=== PATIENT | female | born 1990 | race Caucasian/White ===

== ENCOUNTER 2018-01-14 10:55 | Emergency (ER) | payer OTHER ==
[~2018-01-14] VITALS: Ht 167.6 cm; Wt 69.4 kg
--- OUTSIDE RECORDS SUMMARY | ~2018-01-14 | XMS | Clinical Summary ---
Demographics + + + | Address | [address] | | | [place] [address] | + + + | Home Phone | | + + + | Preferred Language | Unknown | + + + | Marital Status | Single | + + + | Buddhist Affiliation | Unknown | + + + | Race | Unknown | + + + | Ethnic Group | Other Race | + + + Author + + + | Author | [facility] | + + + | Organization | [facility] | + + + | Address | Unknown | + + + | Phone | Unavailable | + + + Support + + + + + | Name | Relationship | Address | Phone | + + + + + | NONE,NONE | ECON | [address] | | | | | [place] | | | | | [address] | | + + + + + Care Team Providers + +------+ + | Care Patient Support Specialist Name | Role | Phone | + +------+ + PP | Unavailable | + +------+ + Source Comments VICTORINO is fully live on both [facility] and [facility] InPatient[facility] Allergies Not on File Current Medications Not on file Active Problems Not on file Social History + +-------+ +--------+------+ | Tobacco Use | Types | Packs/Day | Years | Date | | | | | Used | | + +-------+ +--------+------+ | Never Assessed | | | | | + +-------+ +--------+------+ + + + | Sex Assigned at | Date Recorded | | | | + + + | Not on file | | + + + Plan of Treatment Not on file Results Not on filefrom Last 3 Months"
--- OUTSIDE RECORDS SUMMARY | ~2018-01-14 | XMS | Clinical Summary ---
Demographics + + + | Address | [address] | | | [place] [address] | + + + | Home Phone | | + + + | Preferred Language | Unknown | + + + | Marital Status | | + + + | Tenriism Affiliation | Unknown | + + + | Race | Unknown | + + + | Ethnic Group | Unknown | + + + Author + + + | Author | [facility] | | | and [place] | + + + | Organization | [facility] | | | and [place] | + + + | Address | Unknown | + + + | Phone | Unavailable | + + + Support + + +---------+ + | Name | Relationship | Address | Phone | + + +---------+ + | Vi Anderson | ECON | Unknown | | + + +---------+ + Care Team Providers + +------+ + | Care Labor Relations Manager Name | Role | Phone | + +------+ + | Helene Zheng MD | PP | | + +------+ + Allergies + + + + + + | Active Allergy | Reactions | Severity | Noted | Comments | | | | | Date | | + + + + + + | Dexamethasone | Other (See Comments) | | 11/09/19 | Skin turns red | | | | | 16 | | + + + + + + | Infliximab | Swelling | | 11/09/19 | throat swelling | | | | | 16 | | + + + + + + Current Medications + + + +---------+------+------+-------+ | Prescription | Sig. | Disp. | Refills | Star | End | Statu | | | | | | t | Date | s | | | | | | Date | | | + + + +---------+------+------+-------+ | buprenorphine | Place 4 mg under the | | | / | | Activ | | (SUBUTEX) 8 mg SUBL | tongue 3 times | | | 0/20 | | e | | | daily. | | | 17 | | | + + + +---------+------+------+-------+ | adalimumab | Inject 0.8 mLs under | 2 each | 3 | 11/2 | | Activ | | (HUMIRA) 40 mg/0.8 | the skin every 14 | | | 9/20 | | e | | mL injection | days. | | | 17 | | | | (syringe) | | | | | | | + + + +---------+------+------+-------+ Active Problems + + + | Problem | Noted Date | + + + | Unspecified disorder of skin and subcutaneous tissue | 09/25/2010 | + + + + + | Overview: Overview: | | Wart right thumb | + + + + + | Allergic rhinitis | 06/13/2010 | + + + | Other chronic pain | 09/03/2009 | + + + + + | Overview: Overview: For crohn's disease. Acetaminophen | | hydrocodone 1 tab 4-6 hrs prn #90 tabs per month. 03/04/10 | | Medical marijuana x 3 weeks, NO MORE NARCOTICS FROM [place]. Pt | | verbalized understanding and agreed. | + + + + + | Peptic ulcer | 07/19/2009 | + + + + + | Overview: Overview: | | dx 2005 EGD due to upper abd pain on 01/11/09 Distal esophagitis | | | | IMO Problem List Replacement - 2016_Regulatory_1 | + + + + + | Regional enteritis (HCC) | 07/19/2009 | + + + + + | Overview: Overview: Ileocolonic Crohn's dse s/p small bowel | | right colonic resections in 2001 and 2002. Last coloscopy 01/11/09 | | some ileal ulcerations Sees GI Dom Villagran MD [place] | | ClinicIMO Problem List Replacement - 2017_Regulatory_1 | | | |IMO Problem List Replacement - 2017_Regulatory_1 | + + Family History + + +------+ + | Medical History | Relation | Name | Comments | + + +------+ + | Breast cancer | Other | | | + + +------+ + | Depression | Other | | | + + +------+ + | Diabetes | Paternal | | | | | Grandmoth | | | | | er | | | + + +------+ + + +------+--------+ + | Relation | Name | Status | Comments | + +------+--------+ + | Brother | | Alive | | + +------+--------+ + | Father | | Alive | | + +------+--------+ + | Mother | | Alive | | + +------+--------+ + | Other | | | | + +------+--------+ + | Paternal Grandmother | | | | + +------+--------+ + | Sister | | Alive | | + +------+--------+ + | Sister | | Alive | | + +------+--------+ + Social History + + + +--------+------+ | Tobacco Use | Types | Packs/Day | Years | Date | | | | | Used | | + + + +--------+------+ | Current Every Day | Cigarettes | 0.25 | | | | Smoker | | | | | + + + +--------+------+ + +---+---+---+ | Smokeless Tobacco: | | | | | Never Used | | | | + +---+---+---+ + + +---------+ + | Alcohol Use | Drinks/We | oz/Week | Comments | | | ek | | | + + +---------+ + | No | 0 | 0.0 | | | | Standard | | | | | drinks or | | | | | | | | | | equivalen | | | | | t | | | + + +---------+ + + + + | Sex Assigned at | Date Recorded | | | | + + + | Not on file | | + + + Last Filed Vital Signs + + + + | Vital Sign | Reading | Time Taken | + + + + | Blood Pressure | 90/60 | 07/29/2017 1523 PST | + + + + | Pulse | 84 | 07/29/20171522 PST | + + + + | Temperature | - | - | + + + + | Respiratory Rate | 16 | 07/29/20171522 PST | + + + + | Oxygen Saturation | 98% | 11/15/20151515 PST | + + + + | Inhaled Oxygen | - | - | | Concentration | | | + + + + | Weight | 69.1 kg (152 lb 5.4 | 07/29/20171522 PST | | | oz) | | + + + + | Height | 170.2 cm (5' 7") | 07/29/20171522 PST | + + + + | Body Mass Index | 23.86 | 07/29/20171522 PST | + + + + Plan of Treatment + + + + + | Health Maintenance | Due Date | Last Done | Comments | + + + + + | Vaccine: | | | | | Dtap/Tdap/Td (1 - | 7 | | | | Tdap) | | | | + + + + + | Vaccine: | | | | | Pneumococcal 19-64 | 7 | | | | (PPSV23 only) Medium | | | | | Risk (1 of 1 - | | | | | PPSV23) | | | | + + + + + | CERVICAL CANCER | | | | | SCREENING (PAP EVERY | 9 | | | | 3 YEARS 21-64 ) | | | | + + + + + | Vaccine: Influenza | | | | | (Season Ended) | 8 | | | + + + + + Results Not on filefrom Last 3 Months Insurance + +--------+ +--------+ +---------+ | Payer | Benefi | Subscriber | Type | Phone | Address | | | t Plan | ID | | | | | | / | | | | | | | Group | | | | | + +--------+ +--------+ +---------+ | [employer] | MODA | xxxxxxxx | Medica | [phone] | | | MEDICAID HMO | HEALTH | | id | [phone] | | | | MDCD | | | | | | | [place]MO [place] | | | | | + +--------+ +--------+ +---------+ + +--------+ +--------+ + + | Guarantor Name | Accoun | Relation to | Date | Phone | Billing Address | | | t Type | Patient | of | | | | | | | | | | + +--------+ +--------+ + + | PRUDENCE WEBER | Person | Self [birth year] Home: | [address] | | | al/Fam | | 1990 | [phone] | [place] [address] | | | anisha | | | [phone] | | + +--------+ +--------+ + +
--- OUTSIDE RECORDS SUMMARY | ~2018-01-14 | XMS | Clinical Summary ---
Demographics + + + | Address | [address] | | | [place] [address] | + + + | Home Phone | | + + + | Preferred Language | Unknown | + + + | Marital Status | Single | + + + | Sabianist Affiliation | Unknown | + + + | Race | Unknown | + + + | Ethnic Group | Other Race | + + + Author + + + | Author | [facility] | + + + | Organization | [facility] | + + + | Address | Unknown | + + + | Phone | Unavailable | + + + Support + + + + + | Name | Relationship | Address | Phone | + + + + + | NONE,NONE | ECON | [address] | | | | | [place] | | | | | [address] | | + + + + + Care Team Providers + +------+ + | Care Director Of Religious Activities Name | Role | Phone | + +------+ + PP | Unavailable | + +------+ + Source Comments VICTORINO is fully live on both [facility] and [facility] InPatient.[facility] Allergies Not on File Current Medications Not [...]
--- OUTSIDE RECORDS SUMMARY | ~2018-01-14 | XMS | Clinical Summary ---
Demographics + + + | Address | [address] | | | [place] [address] | + + + | Home Phone | | + + + | Preferred Language | Unknown | + + + | Marital Status | | + + + | Adventism Affiliation | Unknown | + + + | Race | Unknown | + + + | Ethnic Group | Unknown | + + + Author + + + | Author | [facility] | | | and [place] | + + + | Organization | [facility] | | | and [place] | [...] Team Providers + +------+ + | Care Desktop Specialist Name | Role | Phone | [...] ileal ulcerations Sees GI Dom Villagran MD [place] | | ClinicIMO Problem List Replacement - [...] | MODA | xxxxxxxx | Medica | [phone] | | | MEDICAID HMO | HEALTH [...] | 1990 | [phone] | [place] [address] | | | anisha | | | [phone] | | + +--------+ +--------+ + +
[~2018-01-14 10:55] MED LIST: CITRATE OF MAG300 ML PO; HUMIRA20 MG/0.4 SUB-Q; OXYCODONE HCL15 MG PO
[2018-01-14] MEDS ORDERED: BUPRENORPHINE HC8 MG SL (11:07)
[2018-01-14] MEDS ORDERED: CIPRO500 MG PO (12:54)
[2018-01-14] MEDS ORDERED: ZOFRAN ODT4 MG PO (12:54)
== END 2018-01-14 13:25 | disposition home or self-care (01) ==
LOC: ED 10:55
DX: K52.9 Noninfective gastroenteritis and colitis, unspecified (principal); F17.200 Nicotine dependence, unspecified, uncomplicated; Z88.8 Allergy status to other drugs, medicaments and biological substances; Z79.899 Other long term (current) drug therapy
CPT/HCPCS: 80053; 81001; 83605; 83690; 84703; 85025; 96361; 96374; 99283; J2405; J7030

== ENCOUNTER 2025-06-14 22:00 | Inpatient (IN) | payer OTHER ==
[~2025-06-14] VITALS: Ht 167.6 cm; Wt 75.5 kg
[~2025-06-14 22:00] MED LIST changes: +BUPRENORPHINE HC8 MG SL; +CIPRO500 MG PO; +HYDROCORTISONE454 GM TOP; +METHYLPHENIDATE36 MG PO; +PREDNISONE10 MG PO; +SKYRIZI ON360 MG/2.4 SUB-Q; +ZOFRAN ODT4 MG PO
--- OUTSIDE RECORDS SUMMARY | 2025-06-14 22:07 | XMS ---
PreManage Notification: GREG JACKSON Security Beautician Apprentice Events No recent Security Events currently on file CRITERIA MET - [facility] - 2 Visits in 30 Days CARE PROVIDERS -, [facility] Dentist: Extension Service Specialist [facility] PHONE: [phone] -[place]- Dentist: Extension Service Specialist [facility] PHONE: [phone] [place] [facility]: [facility] PHONE: [phone] Gabe has no Care Guidelines for this patient. E.D. VISIT COUNT (12 MO.) 2 NEEL Landin [facility] AtulJorge L TOTAL 3 NOTE: Visits indicate total known visits. ED/UCC VISIT TRACKING (12 MO.) 06/14/2025 22:01 [facility] [place] TYPE: Emergency COMPLAINT: - VOMITING 06/04/2025 07:08 [facility] [place] TYPE: Emergency COMPLAINT: - VOMITING 12/22/2024 17:46 [facility] TYPE: Emergency COMPLAINT: - MELENA DIAGNOSES: 0. Melena 0. BOWEL ISSUES 1. Generalized abdominal pain 2. Acquired absence of other specified parts of digestive tract 2. Anxiety disorder, unspecified 2. Personal history of other diseases of the digestive system INPATIENT VISIT TRACKING (12 MO.) 06/05/2025 10:00 [facility] [place] TYPE: Medical Surgical COMPLAINT: - SBO DIAGNOSES: - Acquired absence of other specified parts of digestive tract - Acquired absence of other specified parts of digestive tract - Allergy status to other drugs, medicaments and biological substances - Allergy status to other drugs, medicaments and biological substances - Crohn's disease, unspecified, with intestinal obstruction - Crohn's disease, unspecified, without complications - Crohn's disease, unspecified, without complications - Nicotine dependence, cigarettes, uncomplicated - Nicotine dependence, cigarettes, uncomplicated - Other fci (current) drug therapy - Other fci (current) drug therapy - Other specified postprocedural states - Other specified postprocedural states - Partial intestinal obstruction, unspecified as to cause [email or web address]
[2025-06-14 22:45] LABS: MCH 28.8 PG (25.6-32.2); MCHC 33.9 g/dL (32.2-35.5); MCV 85.2 fL (79.4-94.8); RBC 5.20 M/uL (3.93-5.22)
[2025-06-14] MEDS ORDERED: HYDROmorphone HCL 1 MG/ML SYR IV ONE (22:45)
[2025-06-14] MEDS ORDERED: PROCHLORPERAZINE EDISYLATE 10 MG/2 ML VIAL IV ONE (22:45)
[2025-06-14] MEDS ORDERED: SODIUM CHLORIDE 0.9% 1,000 ML IV ONE (22:45)
[2025-06-14 22:58] LABS: BANDS, MANUAL DIFF 2; LYMPHOCYTES, MANUAL DIFF 7; MONOCYTES, MANUAL DIFF 1; NEUTROPHILS, MANUAL DIFF 90
[2025-06-14 23:02] LABS: ALT (SGPT) 24.0 U/L (14-59); AST (SGOT) 19.0 U/L (15-37); GLOMERULAR FILTRATION RATE,EST 102.0 mL/min (>60); PROTEIN, TOTAL 8.4 g/dL (6.4-8.2); UREA NITROGEN 13.0 mg/dL (7-18)
[2025-06-15] VITALS (11 sets, daily range): BP systolic 109–149; BP diastolic 81–108
[2025-06-15] MEDS ORDERED: HYDROmorphone HCL 1 MG/ML SYR IV ONE (00:15)
[2025-06-15] MEDS ORDERED: HYDROmorphone HCL 1 MG/ML SYR IV PRN ×2 (00:45→13:30)
[2025-06-15] MEDS ORDERED: MIDAZOLAM HCL 2 MG/2 ML VIAL IV ONE (00:45)
[2025-06-15] MEDS ORDERED: DEXTROSE 5% - LACTATED RINGERS 1,000 ML IV SCH (00:45)
[2025-06-15] MEDS ORDERED: LIDOCAINE HCL 4% 5 ML AMP INH ONE (01:30)
[2025-06-15] MEDS ORDERED: HYDROCORTISONE SOD SUCCINATE 100 MG/2 ML VIAL IV SCH (02:00)
--- NOTE | 2025-06-15 03:51 | NUR ---
Pt had an episode of N/V roughly 30 min after this RN treated pt's pain with Dilaudid per orders. PRN Zofran given. Cool wash cloths given for comfort. NGT output minimal despite wall suction. Per pt's XRAY post NG insertion, NG is kinked in gastric fundus and needs repositioning. This RN notified Dr. Gamboa, recommends to retract NG tube until adequate suctioning obtained and repeat XRAY for confirmation.
[2025-06-15 05:21] LABS: BASOPHILS 0.3 % (0.1-1.2); EOSINOPHILS 0 % (0.7-5.8); LYMPHOCYTES 1.7 % (19.3-51.7); MCH 28.8 PG (25.6-32.2); MCHC 33.7 g/dL (32.2-35.5); MCV 85.6 fL (79.4-94.8); MONOCYTES 1.5 % (4.7-12.5); NEUTROPHILS 95.6 % (34.0-71.1); RBC 5.34 M/uL (3.93-5.22)
[2025-06-15 05:36] LABS: ALT (SGPT) 16.0 U/L (14-59); AST (SGOT) 21.0 U/L (15-37); GLOMERULAR FILTRATION RATE,EST 96.0 mL/min (>60); PROTEIN, TOTAL 7.9 g/dL (6.4-8.2); UREA NITROGEN 16.0 mg/dL (7-18)
[2025-06-15] MEDS ORDERED: DEXTROSE 5% 1,000 ML IV PRN (06:15)
[2025-06-15] MEDS ORDERED: IBLOOD GLUCOSE TEST STRIP 1 EA TEST XX PRN (06:15)
[2025-06-15] MEDS ORDERED: DEXTROSE 50% 50 ML SYR IV PRN ×2 (06:15)
[2025-06-15] MEDS ORDERED: GLUCAGON,HUMAN RECOMBINANT 1 MG/ML VIAL SUB-Q PRN (06:15)
[2025-06-15] MEDS ORDERED: LACTATED RINGER'S 1,000 ML IV SCH (06:15)
--- NOTE | 2025-06-15 06:55 | NUR ---
REPORT RECEIVED FROM STATE PATROL OFFICER FREDERICK TERAN.
--- NOTE | 2025-06-15 07:25 | NUR ---
JEFFRY RN IS IN THE ROOM AT THIS TIME. JEFFRY REPORTED 100 ML EMESIS AND 400 ML VOID TO THE BEDSIDE COMMODE AT THIS TIME. THIS RN GOT DILAUDID FOR THE PATIENT AT THIS TIME. JEFFRY AND PATIENT STATED NO FURTHER NEEDS AT THIS TIME. CALL LIGHT AND PEROSNAL BELONGINGS ARE WITHIN REACH.
--- NOTE | 2025-06-15 07:55 | NUR ---
PATIENT IS LYING IN BED WITH HOB ELEVATED. ROUNDED ON THE PATIENT AT THIS TIME. PATIENT IS ALERT AND ORIENTED TIMES FOUR. PATIENT WITH NO COMPLAINTS OF PAIN OR NAUSEA AT THIS TIME. PATIENT IS NPO WITH THE NG TUBE IN PLACE. PATIENT ABDOMEN IS DISTENDED, TENDER, AND FIRM. BOWEL TONES ARE HYPOACTIVE IN ALL FOUR QUADRANTS. CARDIAC WITH NORMAL S1 AND S2 ON AUSCULTATION. PATIENT IS ON THE HEART MONITOR IN SINUS TACHYCARDIA. PATIENT IS ON ROOM AIR AND LUNG SOUNDS ARE CLEAR THROUGHOUT. CLOVER, RT IS IN THE ROOM TO GET EKG. PATIENT STATED NO FURTHER NEEDS AT THIS TIME. CALL LIGHT AND PERSONAL BELONGINGS ARE WITHIN REACH.
[2025-06-15] MEDS ORDERED: IBLOOD GLUCOSE TEST STRIP 1 EA TEST VI SCH (08:00)
--- NOTE | 2025-06-15 08:18 | NUR ---
MED REC COMPLETE
--- NOTE | 2025-06-15 09:01 | NUR ---
PATIENT IS LYING IN BED WITH HOB ELEVATED. PATIENT WITH EYES OPEN AND RESPIRATIONS ARE EVEN AND UNLABORED. 0800 MEDICATIONS ADMINISTERED PER THE EMAR. PATIENT RATED PAIN 7/10 IN THE ABDOMEN WHEN IS SPIKES. PATIENT IS REQUESTING SOMETHING FOR PAIN. PATIENT EDUCATED ON PAIN MEDICATIONS BEING AVAILABLE AT 0930. PATIENT EXPRESSED UNDERSTANDING. PATIENT IV SITE FLUSHED WITH 10 ML NORMAL SALINE. PATIENT STATED NO FURTHER NEEDS AT THIS TIME. CALL LIGHT AND PERSONAL BELONGINGS ARE WITHIN REACH.
--- NOTE | 2025-06-15 09:40 | NUR ---
CHANGES NOTED IN EKG LEADS [address] CONNELL NOTIFIED AND ORDERD STAT EKG AND LABS TROP. PT IN BE EYES CLOSED, DENIES CHEST PAIN , NUMBNESS AND OR ANYDISCOMFORT.
--- NOTE | 2025-06-15 09:50 | NUR ---
PT NOT AVAILABLE FOR VISIT. PROVIDED PRAYER.
--- NOTE | 2025-06-15 10:15 | NUR ---
PATIENT IS LYING IN BED WITH HOB ELEVATED. PATIENT WITH EYES OPEN AND RESPIRATIONS ARE EVEN AND UNLABORED. CUP OF ICE CHIPS PROVIDED PER MD ORDER. PATIENT IS SITTING IN THE CHAIR AT BEDSIDE. CALL LIGHT AND PEROSNAL BELONGINGS ARE WITHIN REACH.
--- NOTE | 2025-06-15 11:15 | NUR ---
FULL ASSESSMENT COMPLETE AND DOCUMENTED IN CHART. NO CHANGES FROM 0800 ASSESSMENT. HEART MONITOR LEADS REMAIN IN PLACE. PT IN SINUS TACHYCARDIA. PT RATES PAIN 4/10, AND IS REQUESTING PAIN MEDICATION. CALL LIGHT AND PERSONAL BELONGINGS ARE WITHIN REACH.
--- NOTE | 2025-06-15 11:18 | NUR ---
INTO SEE PATIENT. PERSONAL HEALTH INFORMATION REVIEWED. PATIENT LIVES WITH WITH THEIR KIDS. NO STEPS INTO THE HOME. NO DME. PATIENT DRIVES. DENIES ANY DIFFCULTY PAYING UTLITIES OR OBTAINING FOOD. PATIENT DENIES ANY CM NEEDS.
--- NOTE | 2025-06-15 12:01 | NUR ---
IN ROOM TO TAKE TEMPERATURE. PT LAYING IN BED WITH HEAD ELEVATED. PT WITH EYES CLOSED AND SNORING. CALL LIGHT AND PERSONAL BELONGINGS ARE WITHIN REACH.
--- NOTE | 2025-06-15 13:11 | NUR ---
UR CLINICAL REVIEW: MCG, MEETS INPT FOR INFLAMMATORY BOWEL DISEASE IV DILAUDID, CT SHOWS INFLAMMATION AND NARROWING OF ILEUM, HR >100 CONSISITENTLY, ABDOMINAL PAIN, NAUSEA/VOMITING, IV FLUIDS, NG TUBE IV ANTIBIOTICS AND STEROIDS [facility] INPT 06/15/2025 @ 0101 ORDER MATCHES REG AUTH PENDING, WILL SEND CLINICALS FOR REVIEW DC TO HOME WHEN MEDICALLY READY DC 06/16/2025
--- NOTE | 2025-06-15 13:28 | NUR ---
NOTIFIED OF IV DILAUDID DOSE BEING AN ED BRIDGE ORDER AND FALLING OFF THE ORDERS. MD STATED TO CONTINUE WITH IV DILAUDID 0.5-1 MG EVERY 2 HOURS NEEDED. NO FURTHER ORDERS AT THIS TIME. CALL ENDED.
[2025-06-15] MEDS ORDERED: PIPERACILLIN/TAZOBACTAM 4.5 GM in DEXTROSE 5% 100 ML IV SCH (14:00)
--- NOTE | 2025-06-15 14:00 | NUR ---
IV LR BOLUS STARTED AT THIS TIME. IV SITE REMAINS CLEAN, DRY, AND INTACT. PATIENT CLEANED UP FROM HAVING BM. SOO CARE AND ALMONTE CARE COMPLETE AT THIS TIME. PATIENT TOLERATED WELL. PATIENT REFUSED PHYSICAL THERAPY. PATIENT STATED NO FURTHER NEEDS AT THIS TIME. CALL LIGHT AND PERSONAL BELONGINGS ARE WITHIN REACH.
--- NOTE | 2025-06-15 14:07 | NUR ---
METHYLPREDNISOLONE IV DOSE VERIFIED WITH AT THIS TIME. TELEPHONE ORDER FOR IV BENADRYL AND IV ZOFRAN RECEIVED OVER THE PHONE AT THIS TIME. ORDERS PUT IN BY THIS RN. WITH NO FURTHER ORDERS AT THIS TIME. CALL ENDED.
--- NOTE | 2025-06-15 14:09 | NUR ---
PT SITTING IN BED WITH HEAD ELEVATED. EYES CLOSED, RR EVEN AND UNLABORED. AND FAMILY IN ROOM. CALL LIGHT AND PERSONAL BELONGINGS ARE WITHIN REACH.
[2025-06-15 14:27] LABS: BLOOD/HGB, URINE SMALL (Negative); KETONE, URINE TRACE (Negative); LEUK ESTERASE, URINE NEGATIVE (negative); NITRITE, URINE NEGATIVE (negative)
[2025-06-15 14:34] LABS: BACTERIA, URINE NONE SEEN /hpf (negative); CASTS, URINE NONE SEEN \\lpf; CRYSTALS, URINE NONE SEEN (0-1+); EPITHELIAL CELLS, URINE SQUAMOUS 3+ /lpf (0-1+); REFLEX CULTURE, URINE No (No)
--- NOTE | 2025-06-15 15:40 | NUR ---
PT LAYING IN BED WITH HEAD ELEVATED AND EYES CLOSED. PT IS DROWSY BUT AROUSABLE TO VOICE. FULL ASSESSMENT COMPLETE AND DOCUMENTED IN CHART. NO CHANGES FROM PRIOR ASSESSMENT. PT REPORTS PAIN 5/10 BUT IS NOT REQUESTING PAIN MEDS AT THIS TIME. PT STATED NO FURTHER NEEDS AT THIS TIME. CALL LIGHT AND PERSONAL BELONGINGS ARE WITHIN REACH.
--- NOTE | 2025-06-15 16:09 | NUR ---
PT LAYING IN BED WITH EYES CLOSED. RR ARE EVEN AND UNLABORED. CALL LIGHT AND PERSONAL BELONGINGS ARE WITHIN REACH.
--- NOTE | 2025-06-15 17:05 | NUR ---
NOTIFIED OF PATIENT REQUESTING TYLENOL FOR A HEADACHE. GAVE TELEPHONE ORDER FOR PO TYLENOL. WITH NO FURTHER ORDERS AT THIS TIME. CALL ENDED.
[2025-06-15] MEDS ORDERED: ACETAMINOPHEN 325 MG TAB PO PRN (17:15)
--- NOTE | 2025-06-15 17:42 | NUR ---
PATIENT IS NOW SITTING IN THE CHAIR. NG TUBE CLAMPED AFTER RECEIVING DOSE OF TYLENOL, SEE EMAR. PATIENT HAD 100 ML EMESIS AND SAW HALF A PILL IN THE BAG. PATIENT ASSISTED TO USING THE BATHROOM AND BRUSHING TEETH. BED LINENS CHANGED AT THIS TIME. PATIENT RECONNECTED TO THE MONITOR. PATIENT STATED NO FURTHER NEEDS AT THIS TIME. CALL LIGHT AND PEROSNAL BELONGINGS ARE WITHIN REACH.
--- NOTE | 2025-06-15 18:10 | NUR ---
PATIENT IS SITTING UPRIGHT IN THE CHAIR WITH BILATERAL LOWER EXTREMITIES ELEVATED. PATIENT WITH EYES OPEN AND RESPIRATIONS ARE EVEN AND UNLABORED. VITAL SIGNS TAKEN AND DOCUMENTED IN THE CHART. NG TUBE RECONNECTED TO INTERMITTENT WALL SUCTION. PATIENT STATED NO FURTHER NEEDS AT THIS TIME. CALL LIGHT AND PERSONAL BELONGINGS ARE WITHIN REACH.
--- NOTE | 2025-06-15 20:20 | NUR ---
PATIENT REPORTING INCREASED NAUSEA AND ABD PAIN. HAS NOTED NG TUBE IS NOT DRAINING MUCH IT HAD BEEN. ATTEMPTS MADE TO FLUSH NG TUBE AND ASPIRATE STOMACH CONTENT; WHICH IT DOES SMALL AMOUNTS. ON UNIT AND PROVIDED VERBAL ORDER FOR ADDITIONAL NAUSEA MEDS.
[2025-06-15] MEDS ORDERED: PROCHLORPERAZINE EDISYLATE 10 MG/2 ML VIAL IV PRN (20:30)
--- NOTE | 2025-06-15 20:45 | NUR ---
PATIENT HAD EMESIS 200 MLS DARK OUTPUT AND CONTINUES TO BE NAUSEOUS. DISCUSSED WITH ; ORDER FOR REPEAT CHEST XRAY AND ADVANCEMENT IF NEEDED.
--- NOTE | 2025-06-15 21:00 | NUR ---
AFTER VOMITING PATIENT HAD AN ADDITIONAL 400 MLS OUT IN HER NG TUBE. PATIENT PROVIDED PRN PAIN MEDS FOR 8/10 ABD PAIN.
--- NOTE | 2025-06-15 21:58 | NUR ---
NG TUBE ADVANCED PER RADIOLOGY REPORT RECOMMENDATION. PATIENT TOLERATED WELL. PATIENT REPORTS "NOT FEELING GOOD" BUT REPORTS ABD PAIN HAS IMPROVED AND NAUSEA IS LESS. NG TUBE TO LIWS AND PUTTING OUT BROWN STOMACH CONTENT. PATIENT VS STABLE; HR IS ELEVATED 100-130'S AT REST. IV ABX STARTED PER ORDER; SITE WNL. PATIENT DENIED OTHER NEEDS. CALL LIGHT IN REACH.
--- NOTE | 2025-06-15 23:15 | NUR ---
PATIENT PROVIDED PRN PAIN AND NAUSEA MEDS FOR ABD PAIN 5/10. PRIOR TO RN ENTERING ROOM PATIENT WAS RESTING WITH EYES CLOSED. HR ELEVATED TO 120'S. PATIENT DENIED ANY OTHER NEEDS OR CONCERNS. NG TUBE CONNECTED TO LIWS AND APPEARS TO BE FUNCTIONING WELL. CALL LIGHT IN REACH.
[2025-06-16] VITALS: BP 126/93
[2025-06-16 02:00] VITALS: BP 121/84
--- NOTE | 2025-06-16 03:15 | NUR ---
PATIENT UP TO THE BATHROOM. PATIENT VOIDED AND HAD LARGE LOOSE BM. PATIENT RETURNED TO BED. PRN PAIN MEDS PROVIDED. PATIENT REPORTS HER THROAT IS SORE AND DRY. ICE CHIPS PROVIDED FOR COMFORT. NG TUBE CONNECTED TO LIWS; APPEARS WNL. VS STABLE. PATIENT DENIES NAUSEA. IV FLUIDS CONTINUED PER ORDER; SITE WNL.
--- NOTE | 2025-06-16 05:34 | NUR ---
PATIENT UP TO THE BATHROOM. REPORTS HAVING A MEDIUM SEMI FORMED STOOL. PATIENT REPORTING PAIN 5/10 AND REQUESTING PRN ZOFRAN. PRN MEDS PROVIDED PER ORDER. LAB IN FOR MORNING DRAW.
[2025-06-16 05:37] LABS: BASOPHILS 0.1 % (0.1-1.2); EOSINOPHILS 0 % (0.7-5.8); LYMPHOCYTES 10.8 % (19.3-51.7); MCH 28.4 PG (25.6-32.2); MCHC 32.2 g/dL (32.2-35.5); MCV 88.2 fL (79.4-94.8); MONOCYTES 10.3 % (4.7-12.5); NEUTROPHILS 78.6 % (34.0-71.1); RBC 4.50 M/uL (3.93-5.22)
[2025-06-16 05:39] VITALS: BP 124/81
[2025-06-16 05:47] LABS: GLOMERULAR FILTRATION RATE,EST 102.0 mL/min (>60); UREA NITROGEN 20.0 mg/dL (7-18)
--- NOTE | 2025-06-16 06:53 | NUR ---
UPDATE PROVIDED TO ; REVIEWED LABS, VS AND OUTPUT. PLAN FOR 1L IV BOLUS AND REPEAT LACTIC. SEE ORDERS.
[2025-06-16] MEDS ORDERED: LACTATED RINGER'S 1,000 ML IV SCH (07:00)
[2025-06-16 08:00] VITALS: BP 112/71
--- NOTE | 2025-06-16 08:20 | NUR ---
REPORT RECEIVED FROM JES MACK. IN TO CHECK ON PT, SHE IS AWAKE IN BED, DOES REQUEST A CEPACOL LOZENGE AND ICE WATER.
[2025-06-16] MEDS ORDERED: MENTHOL/CETYLPYRD CL 1 LOZ LOZENGE MM PRN (08:30)
--- NOTE | 2025-06-16 08:45 | NUR ---
PT IN TO BATHROOM TO VOID AND HAVE SMALL BOWEL MOVEMENT.
--- NOTE | 2025-06-16 09:09 | NUR ---
PT NOW UP AMBULATING IN THE HALLS, STEADY ON FEET, TOLERATING IT WELL.
--- NOTE | 2025-06-16 09:16 | NUR ---
AMBULATIING IN HALLWAY THIS MORNING. NG REMAINS IN PLACE. NO CM NEEDS AT THIS TIME. PLANS TO RETURN HOME WHEN MEDICALLY READY. POTENTIALLY THURSDAY OR BEGINNING OF NEXT WEEK.
--- NOTE | 2025-06-16 09:30 | NUR ---
PT REQUESTING PAIN MEDICATION FOR ABDOMINAL PAIN, 1MG IV DILAUDID GIVEN.
--- NOTE | 2025-06-16 09:40 | NUR ---
PT ON PHONE WITH HER GI DR IN [place], SHE STAES THEY WANT THE MD PHONE NUMBER FOR A DOCTOR TO DOCTOR CALL, DR Reyes UPDATED AND NUMBER GIVEN TO PT TO GIVE HER DRS OFFICE.
--- NOTE | 2025-06-16 10:18 | NUR ---
PT NOT AVAILABLE FOR VISIT. PROVIDED PRAYER.
[2025-06-16 10:27] LABS: LACTIC ACID, BLOOD 1.5 mmol/L (0.4-2.0)
[2025-06-16] MEDS ORDERED: ACETAMINOPHEN 160 MG/5 ML CUP PO PRN (10:30)
--- NOTE | 2025-06-16 10:40 | NUR ---
PT STATES DILAUDID DID NOT HELP HER WITH HER THROAT PAIN AND GENERAL DISCOMFORT IN HER HEAD AND NECK AND REQUESTS TYLENOL. PRN TYLENOL SUSPENSION GIVEN AND NGT CLAMPED FOR 30 MINUTES. AFTER ABOUT 20 MINUTES PT REPORTED THAT SHE FEELS THE TYLENOL WAS WORKING AND HER THROAT AND HEAD ARE FEELING MUCH BETTER. PT OUT IN HALLS TO AMBULATE.
--- NOTE | 2025-06-16 11:30 | NUR ---
PT REQUESTS MORE DILAUDID, STATES SHE IS STARTING TO GET PAINFUL AGAIN. 1MG IV DILAUDID GIVEN WITH 4MG IV ZOFRAN.
--- NOTE | 2025-06-16 11:45 | EKG ---
[facility] [address] [facility] [address] [facility] [place], [place] [address] Signed Sinus tachycardia Otherwise normal ECG When compared with ECG of 15-JUN-2025 07:49, (Unconfirmed) No significant change was found Confirmed by LUCIO CONNELL MD ([id number]) on 06/16/2025 11:45:24 AM Electronically Signed By: LUCIO CONNELL 06/16/25 1145 PATIENT NAME: GREG JACKSON Electrocardiogram DATE OF : 86 PHYSICIAN: LUCIO CONNELL REPORT #: [id number] REPORT IS CONFIDENTIAL AND NOT TO BE RELEASED WITHOUT AUTHORIZATION
--- NOTE | 2025-06-16 11:46 | EKG ---
[facility] [address] [facility] [place], [place] [address] Signed Sinus tachycardia Otherwise normal ECG No previous ECGs available Confirmed by LUCIO CONNELL MD ([id number]) on 06/16/2025 11:45:48 AM Electronically Signed By: LUCIO CONNELL 06/16/25 1146 PATIENT NAME: GREG JACKSON Electrocardiogram DATE OF : [birth year] PHYSICIAN: LUCIO CONNELL REPORT #: [id number] REPORT IS CONFIDENTIAL AND NOT TO BE RELEASED WITHOUT AUTHORIZATION
--- NOTE | 2025-06-16 13:00 | NUR ---
SURGEON IN TO TALK WITH PT, STATES THAT THE SURGEON IN [place] HAS ACCEPTED PT AND REQUESTS HER TO BE TRANSFERRED, DR CONNELL UPDATED WHO AGREES TO TRANSFER. [facility] CALLED, PT PLACED ON WAITLIST, DR Reyes AND DR CONNELL UPDATED AND PT AWARE.
[2025-06-16] MEDS ORDERED: MAALOX/DIPHENHYDRAMINE/LIDOCAINE 1:1:1 BY VOLUME SUSP PO PRN (13:30)
--- NOTE | 2025-06-16 13:52 | NUR ---
PATIENT CALLED [facility] FOR PAIN COVERAGE. SHE REPORTS PAIN 7/10 ABD/THROAT, SHE SAID MAINLY THROAT. PATIENT ADMINISTERED 1MG IV DILAUDID PRN FOR PAIN. SHE REPORTS SHE FEELS LIKE SHE HAS A FEVER, ORAL TEMP 99.0 AT THIS TIME. PATIENT IS NOTED TO BE FLUSHED IN THE FACE. SHE IS SITTING UP IN BED ASSISTING HER DAUGHTER WITH HER HOME MEDICATION ADMINISTRATION. PATIENT IS VERBALIZING CONCERNS ABOUT HER BILLS AND MONEY, THAT SHE HASNT BEEN ABLE TO WORK FOR OVER A MONTH. SHE ALSO VERBALIZED THAT IF SHE DOES NEED SURGERY SHE WOULD LIKE TO GO TO HER GI DOCTOR IN [place].
[2025-06-16 14:50] VITALS: BP 146/83
[2025-06-16] MEDS ORDERED: LORazepam 2 MG/ML VIAL IV PRN (15:15)
--- NOTE | 2025-06-16 15:29 | NUR ---
PT IS MORE FLUSH THIS AFTERNOON, DISCUSSED POSSIBILITY OF STEROID REACTION WITH DR CONNELL AT BEDSIDE, DOSE OF BENADRYL WAS GIVEN PRIOR TO GIVING THE SOLUMEDROL. AFTER STEROID WAS GIVEN PT BECAME EVEN MORE FLUSHED AND STATED SHE DID NOT FEEL WELL. DR CONNELL CALLED, ORDER GIVEN FOR ATIVAN AND TO DECREASE STEROID DOSE. 1MG IV ATIVAN GIVEN.
--- NOTE | 2025-06-16 16:00 | NUR ---
PT CONT TO REST AFTER ATIVAN GIVEN.
--- NOTE | 2025-06-16 17:11 | NUR ---
PT RESTING WITH EYES CLOSED, RESP EVEN AND UNLABORED.
--- NOTE | 2025-06-16 17:14 | NUR ---
PT RESTING IN BED WITH EYES CLOSED, RESP EVEN AND UNLABORED, HR 80'S, SINUS RHYTHM.
--- NOTE | 2025-06-16 17:58 | NUR ---
PT CALLS TO ASK FOR MORE ATIVAN AND STATES HER THROAT HURTS, 1MG IV ATIVAN GIVEN WITH 1MG IV DILAUDID.
--- NOTE | 2025-06-16 18:20 | NUR ---
PT RESTING WITH EYES CLOSED, RESP EVEN AND UNLABORED, HR 80'S, NGT DRAINING DARK BROWN FLUID.
--- NOTE | 2025-06-16 19:17 | NUR ---
PT RESTING WITH EYES CLOSED, RESP EVEN AND UNLABORED.
--- NOTE | 2025-06-16 19:25 | NUR ---
HANDOFF REPORT RECEIVED FROM FREDERICK XAVIER. ALL QUESTIONS ANSWERED. PATIENT RESTING IN BED. NO EVIDENCE OF ACUTE DISTRESS NOTED.
--- NOTE | 2025-06-16 19:50 | NUR ---
THIS RN AND FREDERICK ANDRE IN ROOM. PATIENT DROWSY BUT AROUSABLE TO VERBAL STIMULI. PATIENT UPDATED ON POC. NO NEEDS IDENTIFIED AT THIS TIME. PATIENT QUICKLY DRIFTS BACK TO SLEEP. RR EVEN AND UNLABORED. NO EVIDENCE OF ACUTE DISTRESS NOTED. CALL LIGHT IN REACH
--- NOTE | 2025-06-16 20:39 | NUR ---
PATIENT RESTING IN BED W/ EYES CLOSED. RR 10. NO EVIDENCE OF ACUTE DISTRESS NOTED. CALL LIGHT IN REACH
--- NOTE | 2025-06-16 21:00 | NUR ---
PATIENT UP TO BATHROOM. SBA. PATIENT GAIT STEADY. PATIENT VOIDS WELL W/O DIFFICULTY. PATIENT PERFORMS ORAL AND SKIN CARE INDEPENDENTLY. PATIENT PROVIDED WARM WASH RAG FOR FACE. PATIENT BACK TO BED. NG TUBE ON PLACED BACK ON LIWS. THIS RN, REMAINS IN ROOM.
[2025-06-16 21:28] VITALS: BP 149/95
--- NOTE | 2025-06-16 21:30 | NUR ---
PATIENT ASSESSMENT COMPLETE. PATIENT DROWSY BUT AROUSABLE TO VERBAL STIMULI. PATIENT ORIENTED. HR 80'S-90'S, NSR. RR 18. BOWEL TONES HYPOACTIVE. PATIENT DENIES NAUSEA AT THIS TIME. PATIENT DENIES TENDERNESS UPON PALPATION. PATIENT C/O 7/10 PAIN W/ THROAT IRRITATION AND DISCOMFORT FROM NG TUBE. NG TUBE INTACT AND ON LIWS. NG TUBE FLUSHED. IV SITE INTACT AND WNL. PATIENT C/O FEELING WEAK FROM "NOT FEELING WELL". PATIENT PROVIDED ICE WATER FOR COMFORT AND ICE PACK. THIS RN AND FREDERICK ANDRE REMAIN IN ROOM
--- NOTE | 2025-06-16 22:00 | NUR ---
MEDICATIONS ADMINISTERED PER EMAR. NG TUBE INTACT AND ON LIWS. VITAL SIGNS STABLE. IVF INFUSING PER EMAR. PATIENT AT BEDSIDE. NO FURTHER NEEDS IDENTIFIED. CALL LIGHT IN REACH.
--- NOTE | 2025-06-16 23:10 | NUR ---
IV ABX INFUSING PER EMAR. PATIENT C/O THROAT IRRITATION FROM THE NG TUBE IN PLACE. PRN LOZENGE PROVIDED PER EMAR. VITAL SIGNS STABLE. PATIENT DENIES FURTHER NEEDS. CALL LIGHT IN REACH
[2025-06-17] VITALS (7 sets, daily range): BP systolic 124–156; BP diastolic 81–97
--- NOTE | 2025-06-17 00:05 | NUR ---
THIS RN IN ROOM. PATIENT C/O FEELING ANXIOUS AND 5/10 ABDOMINAL PAIN. PRN MEDICATIONS ADMINISTERED PER EMAR. VITAL SIGNS STABLE. NO EVIDENCE OF ACUTE DISTRESS NOTED. PATIENT PROVIDED ICE WATER. PATIENT DENIES NEEDS AT THIS TIME. PATIENT REPOSITIONED IN BED. CALL LIGHT IN REACH.
--- NOTE | 2025-06-17 01:47 | NUR ---
THIS RN IN PATIENT ROOM. PATIENT RESTING IN BED W/ EYES CLOSED. RR EVEN AND UNLABORED. SPO2 93% ON RA. NO EVIDENCE OF ACUTE DISTRESS NOTED. IVF INFUSING PER EMAR. CALL LIGHT IN REACH
--- NOTE | 2025-06-17 02:07 | NUR ---
PATIENT RESTING IN BED. RR 12. NO EVIDENCE OF ACUTE DISTRESS NOTED. CALL LIGHT IN REACH
--- NOTE | 2025-06-17 03:07 | NUR ---
patient resting in bed. SPO2 92% on RA. no evidence of acute distress noted. call light in reach
--- NOTE | 2025-06-17 04:00 | NUR ---
PATIENT ASSESSMENT COMPLETE. UPON ENTERING ROOM, PATIENT IS DROWSY BUT EASILY AROUSABLE TO VERBAL STIMULI. PATIENT UP TO BR, SBA. PATIENT BACK TO BED. NG TUBE INTACT AND ON LIWS. PATIENT ALERT AND ORIENTED. PATIENT C/O 6/10 ABDOMINAL PAIN. PRN PAIN MEDICATION ADMINISTERED PER EMAR. PATIENT C/O NAUSEA. PRN ZOFRAN ADMINISTERED PER EMAR. BOWEL TONES HYPOACTIVE. PATIENT DENIES SOB. VITAL SIGNS STABLE. PATIENT PROVIDED ICE PACK. PATIENT DENIES FURTHER NEEDS. PATIENT UPDATED ON POC. CALL LIGHT IN REACH.
--- NOTE | 2025-06-17 04:33 | NUR ---
THIS RN IN PATIENT ROOM. RR EVEN AND UNLABORED. PATIENT RESTING IN BED W/ EYES CLOSED. NO EVIDENCE OF ACUTE DISTRESS NOTED. VITAL SIGNS STABLE. CALL LIGHT IN REACH
--- NOTE | 2025-06-17 05:00 | NUR ---
LAB IN ROOM.
[2025-06-17 05:12] LABS: BASOPHILS 0 % (0.1-1.2); EOSINOPHILS 0 % (0.7-5.8); LYMPHOCYTES 13.8 % (19.3-51.7); MCH 28.6 PG (25.6-32.2); MCHC 32.4 g/dL (32.2-35.5); MCV 88.3 fL (79.4-94.8); MONOCYTES 6.4 % (4.7-12.5); NEUTROPHILS 79.6 % (34.0-71.1); RBC 3.77 M/uL (3.93-5.22)
--- NOTE | 2025-06-17 05:14 | NUR ---
PHONE CALL PLACED TO [facility]. UPDATED RECEIVED. PATIENT REMAINS ON WAITLIST.
[2025-06-17 05:28] LABS: ALT (SGPT) 12.0 U/L (14-59); AST (SGOT) 14.0 U/L (15-37); GLOMERULAR FILTRATION RATE,EST 112.0 mL/min (>60); PROTEIN, TOTAL 6.2 g/dL (6.4-8.2); UREA NITROGEN 12.0 mg/dL (7-18)
--- NOTE | 2025-06-17 06:25 | NUR ---
PATIENT CALL LIGHT ANSWERING. PATIENT ASSISTED UP TO BR, SBA. PATIENT BACK TO BED. NG TUBE FLUSHED. NG TUBE INTACT AND ON LIWS. VITAL SIGNS STABLE. IV SITE INTACT, IVF INFUSING PER EMAR. IV ABX INFUSING PER EMAR. PATIENT UPDATED ON POC. NO FURTHER NEEDS IDENTIFIED. CALL LIGHT IN REACH
[2025-06-17] MEDS ORDERED: PANTOPRAZOLE SODIUM 40 MG/10 ML VIAL IV SCH (09:00)
--- NOTE | 2025-06-17 09:09 | NUR ---
PT CALLS FOR MEDICATION, "IS THERE ANYTHING I CAN HAVE?"- 1MG IV DILAUDID GIVEN.
--- NOTE | 2025-06-17 10:47 | NUR ---
PT UP AMBULATING IN HALLS
--- NOTE | 2025-06-17 11:06 | NUR ---
PT NOW BACK TO BED, ATIVAN AND DILAUDID GIVEN PER REQUEST. CALL LIGHT IN REACH.
--- NOTE | 2025-06-17 12:21 | NUR ---
PT CONT TO REST WITH EYES CLOSED, RESP EVEN AND UNLABORED, SPO2 92-93% ON ROOM AIR WHEN SLEEPING.
--- NOTE | 2025-06-17 13:03 | NUR ---
PATIENT WITH HER DAUGHTER AND THIS RN AMBULATED FULL LAP FROM CCU DOWN [place] ON MED/SURG AROUND WEST MED/SURG NURSES STATION AND BACK TO HER ROOM 126. PATIENT TOLERATED ACTIVITY FAIR, STEADY GAIT. ON ARRIVAL TO CCU SHE BEGAN TO CRY, REPORTING PAIN AT HER ABD AND NGT. PRIMARY RN MORENITA CCU NOTIFIED ON ARRIVAL, AND IS NOW ADMINISTERING PAIN MEDICATION.
--- NOTE | 2025-06-17 13:45 | NUR ---
PT GOT UP AND WENT TO THE BATHROOM, REPORTS SMALL AMOUNT OF FLATUS, NO BOWEL MOVEMENT. SHE THEN AMBULATED IN HALLS APPROX 15 MIN, AND THEN GOT BACK IN BED. ONCE BACK IN BED SHE BECAME TEARFUL, UPSET AT SITUATION OF WAITING FOR A BED FOR TRANSFER AND DISCOMORT OF NGT AND ASKS IF SHE CAN HAVE ANY MEDICATION. 1MG IV DILAUDID WAS GIVEN, WELL 50 MG IV BENADRYL TO PREMEDICATE FOR SCHEDULED SOLUMEDROL. HER FAMILY IS IN TO VISIT AND SHE DOES BREAK DOWN MORE WHEN HER MOTHER ARRIVES AND REQUESTS ATIVAN, WILL GIVE PER EMAR. [facility] WAS CALLED FOR AN UPDATE AND THEY STATE SHE IS STILL NUMBER THREE ON THE WAITLIST, PT UPDATED. SHE ALSO ASKS WHY SHE CANT JUST HAVE THE NGT OUT AT THIS POINT SINCE SHE IS HAVING TO WAIT DAYS FOR TRANSFER. THIS RN EXPLAINED LARGE AMOUNT OF NG OUTPUT IS A CONCERN AND SHE DOES VERBALIZE UNDERSTANDING. SHE IS THEN GIVEN TYLENOL SUSPENSION FOR NGT RELATED PAIN AND NGT CLAMPED FOR APPROX 30 MINUTES.
--- NOTE | 2025-06-17 17:29 | NUR ---
PT HAS JUST GOTTEN BACK FROM ANOTHER WALK, AMBULATED ABOUT 10 MINUTES THEN INTO BATHROOM WHERE SHE VOIDED, HAD SMALL STOOL AND DID REPORT SMALL AMOUNT OF FLATUS. BACK TO BED AND SHE REQUESTED PAIN MEDICATION, IN TO GIVE 1MG IV DILAUDID.
--- NOTE | 2025-06-17 19:45 | NUR ---
SHIFT REPORT RECEIVED. AND PATIENT PROVIDED UPDATE FROM TRANSFER CENTER IN PATIENT ROOM. PATIENT REMAINS ON WAITLIST. PATIENT SPOUCE AT BEDSIDE. PATIENT REPORTING ABD AND THRAOT PAIN. PRN MEDS PROVIDED PER ORDER. PATIENT UP TO THE BATHROOM TO VOID. CORD MANAGEMENT REQUIRED ONLY. PATIENT STEADY ON HER FEET. NG TUBE REMAINS IN PLACE. PATIENT HAS HYPOACTIVE BOWEL SOUNDS. OUTPUT IN NG IS DARK BROWN/RED. ABD IS SOFT. IV FLUIDS INFUSING PER ORDER; SITE WNL. PATIENT PROVIDED FRESH ICE CHIPS WHICH SHE REPORTS HAVE BEEN HELPING BUT SHE IS NOT EATING AN ABUNDANCE OF. DID DISCUSS NEED FOR DEEP BREATHING AND COUGHING; PATIENT IS EXPERIENCING EXTRA SECREATIONS AND SOME CLEAR FROTHY PHLEM.
--- NOTE | 2025-06-17 21:58 | NUR ---
PATIENT PROVIDED SCHEDULED MEDS PER ORDER. ALSO PRN BENADRYL AND ATIVAN. PATIENT IS RESTING IN BED. NG TUBE IN PLACE WITH LIWS. VS STABLE. PATIENT TOLERATING ROOM AIR. HASBAND AT BEDSIDE.
--- NOTE | 2025-06-17 22:44 | NUR ---
PATIENT PROVIDED PRN PAIN MEDS AND A THROAT LOZENGE
--- NOTE | 2025-06-18 | NUR ---
PATIENT APPEARS RESTFUL IN BED. EYES CLOSED. TOLERATING ROOM AIR. NG TUBE IN PLACE AND FUNCTIONAL. ALLOWED PATIENT TO REST.
--- NOTE | 2025-06-18 02:00 | NUR ---
IV ABX FINISHED. PATIENT DID NOT OPEN EYES WHILE RN IN ROOM. APPEARS RESTFUL. HR AND Sp02 WNL. ALLOWED PATIENT TO REST. CALL LIGHT IN REACH.
--- NOTE | 2025-06-18 03:51 | NUR ---
PATIENT UP TO THE BATHROOM TO VOID. REPORTS SHE WAS SLEEPING WELL AND IS NOW PAINFUL AND SORE ALL OVER. PRN MEDS PROVIDED PER ORDER. PATIENT IS AAOX4. TOLERATING ROOM AIR. VS STABLE. NG TUBE IN PLACE WITH LIWS AND BROWN OUTPUT. IV FLUIDS CONTINUED; SITE WNL. PATIENT REMAINS ANXIOUS ABOUT THE NG TUBE AND HER TRANSFER PENDING. ENCOURAGED PATIENT TO REST. CALL LIGHT IN REACH.
[2025-06-18 03:53] VITALS: BP 143/85
--- NOTE | 2025-06-18 05:30 | NUR ---
LAB IN FOR MORNING DRAW. SCHEDULED MEDS PROVIDED. PATIENT REQUEST PRN BENADRYL WITH SCHEDULED SOLU-MEDROL DUE TO SENSITIVITY. PATIENT UP TO THE BATHROOM WITH SBA. PATIENT RETURNED TO BED. VS STABLE. IV FLUIDS AND ABX PER ORDER. CALL LIGHT IN REACH.
[2025-06-18 05:50] LABS: BASOPHILS 0 % (0.1-1.2); EOSINOPHILS 0 % (0.7-5.8); LYMPHOCYTES 20.0 % (19.3-51.7); MCH 28.7 PG (25.6-32.2); MCHC 32.2 g/dL (32.2-35.5); MCV 89.0 fL (79.4-94.8); MONOCYTES 5.3 % (4.7-12.5); NEUTROPHILS 74.5 % (34.0-71.1); RBC 3.63 M/uL (3.93-5.22)
[2025-06-18 06:00] LABS: GLOMERULAR FILTRATION RATE,EST 115.0 mL/min (>60); UREA NITROGEN 11.0 mg/dL (7-18)
[2025-06-18 06:06] VITALS: BP 153/95
--- NOTE | 2025-06-18 07:30 | NUR ---
REPORT RECEIVED FROM JES MACK. PT IS RESTING IN BED WITH EYES CLOSED, RESP EVEN AND UNLABORED, ON CONT SENIOR CARE MANAGER WITH HR 40-50'S.
[2025-06-18 08:13] VITALS: BP 158/81
--- NOTE | 2025-06-18 08:15 | NUR ---
PT CALLS TO STATE SHE IS MISERABLE AND ASK IF SHE CAN HAVE ANY MEDICATION. UP TO BATHROOM FIRST, WHERE SHE VOIDED AND HAD SMALL STOOL BUT REPORTS NO FLATUS. 1MG IV DILAUDID GIVEN, ASSESSMENT DONE, NGT DRAINING LIGHT BROWN FLUID. IN ROOM TO SEE PT.
--- NOTE | 2025-06-18 09:32 | NUR ---
DR JOYCE IN TO SEE PT
--- NOTE | 2025-06-18 10:08 | NUR ---
PT GIVEN 2MG IV ATIVAN PER REQUEST. PT NOW RESTING WITH EYES CLOSED.
[2025-06-18 11:34] VITALS: BP 133/92
--- NOTE | 2025-06-18 12:08 | NUR ---
PT CALLS TO ASK FOR PAIN MEDICATION, 1MG IV DILAUDID GIVEN WITH MORE LOZENGES, SHE DOES SAY THE LOZENGES HELP HER THROAT QUITE A BIT.
[2025-06-18 14:30] VITALS: BP 124/82
--- NOTE | 2025-06-18 15:15 | NUR ---
PT LEFT WITH PFD TO TRANSFER TO [facility].
== END 2025-06-18 15:00 | disposition short-term general hospital (02) | DRG 385 ==
LOC: ED 22:00 → CCU 06-15 01:01
PROVIDERS: Family Medicine; ADMIT Surgery; ATTEND Internal Medicine
PROC: 0D9670Z Drainage of Stomach with Drainage Device, Via Natural or Artificial Opening (ICD-10-PCS; principal; 2025-06-14)
PROC: 3E03329 Introduction of Other Anti-infective into Peripheral Vein, Percutaneous Approach (ICD-10-PCS; 2025-06-15)
DX: K50.012 Crohn's disease of small intestine with intestinal obstruction (principal); A41.9 Sepsis, unspecified organism; E87.1 Hypo-osmolality and hyponatremia; R18.8 Other ascites; R73.9 Hyperglycemia, unspecified; I10 Essential (primary) hypertension; K44.9 Diaphragmatic hernia without obstruction or gangrene; R74.02 Elevation of levels of lactic acid dehydrogenase [LDH]; F17.200 Nicotine dependence, unspecified, uncomplicated; F41.9 Anxiety disorder, unspecified; Z88.8 Allergy status to other drugs, medicaments and biological substances; Z79.52 Long term (current) use of systemic steroids; Z79.620 Long term (current) use of immunosuppressive biologic; Z79.891 Long term (current) use of opiate analgesic; Z90.49 Acquired absence of other specified parts of digestive tract
CPT/HCPCS: 36415; 71045; 74018; 74177; 80048; 80053; 81001; 83036; 83605; 83690; 83735; 84484; 84702; 85025; 87040; 93005; 93010; 96361; 96374; 96375; 96376; 99285-25; A9270; J0780; J1171; J1200; J1720; J1790; J2060; J2250; J2405; J2470; J2543; J2919; J7030; J7121; Q9967